=== PATIENT | male | born 1990 | race African-American/Black ===

== ENCOUNTER 2018-06-06 22:53 | Emergency (ER) | payer SELFPAY ==
[2018-06-07] MEDS ORDERED: IPRATROPIUM/ALBUTEROL 0.5-2.5 MG/3 ML AMPUL NEB ONE (07:21)
--- NOTE | 2018-06-07 08:28 | RADIOLOGY REPORT (SQ) ---
EXAM DESCRIPTION: CHEST 2 VIEWS COMPLETED DATE/TIME: 06/07/2018 8:21 am REASON FOR STUDY: sob COMPARISON: None. EXAM PARAMETERS: NUMBER OF VIEWS: two views TECHNIQUE: Digital Frontal and Lateral radiographic views of the chest acquired. RADIATION DOSE: NA LIMITATIONS: none FINDINGS: LUNGS AND PLEURA: No opacities, masses or pneumothorax. No pleural effusion. MEDIASTINUM AND HILAR STRUCTURES: No masses or contour abnormalities. HEART AND VASCULAR STRUCTURES: Heart normal size. No evidence for failure. BONES: No acute findings. HARDWARE: None in the chest. OTHER: No other significant finding. IMPRESSION: NO ACUTE RADIOGRAPHIC FINDING IN THE CHEST. TECHNICAL DOCUMENTATION: JOB ID: [id number] [employer]- All Rights Reserved Reading location - IP/workstation name: [email or web address]
[2018-06-07] MEDS ORDERED: PREDNISONE 20 MG TABLET PO ONE (08:43)
[2018-06-07] MEDS ORDERED: ALBUTEROL SULFATE HFA (90 MCG/PUFF) 8 GM MDI (1 MDI/ER DISP) IH ONE (08:43)
--- NOTE | 2018-06-07 08:46 | ER Document Report ---
ED General - General Chief Complaint: Congestion Stated Complaint: TROUBLE BREATHING Time Seen by Provider: 06/06/18 23:42 TRAVEL OUTSIDE OF THE [place] IN LAST 30 DAYS: No - HPI Patient complains to provider of: Cough congestion Notes: Patient coming in for evaluation cough congestion ongoing for the last 3 days. Patient states pressure in his head now going to his chest having difficulty breathing. Patient states he is a smoker does have a history of asthma in the past. Patient denies any recent antibiotics travel or sick contacts. Patient states he does not take any medication at home no [id number] allergy medications. Patient resting company upon my evaluation - Related Data Allergies/Adverse Reactions: No Known Allergies Allergy (Verified 06/07/18 07:29) Past Medical History - Social History Smoking Status: Current Every Day Smoker Family History: Reviewed & Not Pertinent Patient has suicidal ideation: No Patient has homicidal ideation: No Renal/ Medical History: Denies: Hx Peritoneal Dialysis Review of Systems - Review of Systems Constitutional: No symptoms reported EENT: Sinus pressure, Sinus discharge Cardiovascular: No symptoms reported Respiratory: Cough, Short of breath Gastrointestinal: No symptoms reported Genitourinary: No symptoms reported Male Genitourinary: No symptoms reported Musculoskeletal: No symptoms reported Skin: No symptoms reported Hematologic/Lymphatic: No symptoms reported Neurological/Psychological: No symptoms reported -: Yes All other systems reviewed and negative Physical Exam - Vital signs Vitals: Temp Pulse Resp BP Pulse Ox 99.8 F 104 H 21 H 150/93 H 95 06/06/18 23:41 06/06/18 23:41 06/06/18 23:41 06/06/18 23:41 06/06/18 23:41 Interpretation: Normal - General General appearance: Appears well, Alert - HEENT Head: Normocephalic, Atraumatic Eyes: Normal Pupils: PERRL - Respiratory Respiratory status: No respiratory distress Chest status: Nontender Breath sounds: Wheezing - Scattered Chest palpation: Normal - Cardiovascular Rhythm: Regular Heart sounds: Normal auscultation Murmur: No - Abdominal Inspection: Normal Distension: No distension Bowel sounds: Normal Tenderness: Nontender Organomegaly: No organomegaly - Back Back: Normal, Nontender - Extremities General upper extremity: Normal inspection, Nontender, Normal color, Normal ROM, Normal temperature General lower extremity: Normal inspection, Nontender, Normal color, Normal ROM, Normal temperature, Normal weight bearing. No: Graciela's sign - Neurological Neuro grossly intact: Yes Cognition: Normal Orientation: AAOx4 [place] Coma Scale Eye Opening: Spontaneous [place] Coma Scale Verbal: Oriented [place] Coma Scale Motor: Obeys Commands [place] Coma Scale Total: 15 Speech: Normal Motor strength normal: LUE, RUE, LLE, RLE Sensory: Normal - Psychological Associated symptoms: Normal affect, Normal mood - Skin Skin Temperature: Warm Skin Moisture: Dry Skin Color: Normal Course - Re-evaluation Re-evalutation: 06/07/18 13:30 Patient symptoms are more likely a URI versus due to high pollen counts recently in the area. Patient improvement after breathing treatment. We will start the patient on steroids will continue with retreatment patient was encouraged to smoke. Patient was discharged home follow-up primary care physician. - Vital Signs Vital signs: Temp Pulse Resp BP Pulse Ox 97.6 F 100 20 151/79 H 96 06/07/18 08:56 06/07/18 08:56 06/07/18 08:56 06/07/18 08:56 06/07/18 08:56 Discharge - Discharge Clinical Impression: URI with cough and congestion Condition: Good Disposition: HOME, SELF-CARE Instructions: Upper Respiratory Illness ([facility]) Additional Instructions: Your physical evaluation is not revealing critical pathology. Do believe your symptoms are related to high pollen count seasonal allergies causing upper respiratory tract symptoms cough sputum production feeling unwell. I would recommend starting an antihistamine. Please use the inhaler as needed for shortness of breath. Please take steroids as prescribed this to help out with your congestion. For your cough I would recommend natural honey and tea or [id number] cough medications. May also take [id number] Tylenol Motrin to help out with muscle aches and pains. He can expect her symptoms to continue on for approximate another 3-5 days. If you feel like you are worsening I would recommend following up with your primary care provider or return to the ER. Please stop smoking if you continue to smoke her symptoms will not improve or take longer for her symptoms to resolve. Prescriptions: Cetirizine HCl [Zyrtec 10 mg Tablet] 1 tab PO DAILY #30 tablet Prednisone [Deltasone 20 mg Tablet] 3 tab PO DAILY 5 Days tablet Forms: Return to Work
[2018-06-07 08:57] VITALS: BP 151/79
== END 2018-06-07 09:15 | disposition home or self-care (01) ==
LOC: ER 22:53
DX: J06.9 Acute upper respiratory infection, unspecified (principal); F17.200 Nicotine dependence, unspecified, uncomplicated
CPT/HCPCS: 99283; 71046; J7512; J3490; J7620